=== PATIENT | male | born 1950 | race American Indian/Alaskan Native ===

== ENCOUNTER 2017-11-06 08:19 | Outpatient (CLI) | payer MEDICARE ==
[2017-11-06 08:59] LABS: Blood Urea Nitrogen 25 mg/dL (9-20)
--- NOTE | 2017-11-06 11:36 | Cat Scan Report ---
FINAL REPORT EXAM: CT ANGIO CHEST HISTORY: DILATED AORTIC ROOT TECHNIQUE: CTA of chest with IV contrast. Coronal and sagittal and MIP reconstructed images provided. PRIORS: None currently available. FINDINGS: No pneumothorax. No effusion. No consolidation. No endobronchial lesion. Main pulmonary arteries are unremarkable. No pulmonary embolus. Mild ectasia at the aortic root. Moderate aortic atherosclerotic disease. Major branch vessels are unremarkable. Aortic root measures 3.5 cm. Ascending aorta measures 3.4 cm. Horizontal aorta measures 2.3 cm. Focal protrusion at the descending aorta measures 3.1 cm. No dissection. [id number] cardiomegaly. No pericardial effusion. Coronary artery disease. There is no axillary adenopathy. There is no hilar or mediastinal mass or adenopathy. Images of the esophagus are unremarkable. Images of the thyroid gland are unremarkable. No suspicious osseous lesions on this limited examination of the skeleton. Metastatic disease better evaluated with bone scan. Degenerative changes are present in the spine. IMPRESSION: Minimal to mild ectasia of the aortic root. No aortic aneurysm or dissection. Cardiomegaly.
== END 2017-11-06 08:20 | disposition home or self-care (01) ==
LOC: CT 08:19
PROVIDERS: ATTEND Internal Medicine
DX: I51.7 Cardiomegaly (principal); I25.10 Atherosclerotic heart disease of native coronary artery without angina pectoris; I77.810 Thoracic aortic ectasia; I70.0 Atherosclerosis of aorta; M47.894 Other spondylosis, thoracic region
CPT/HCPCS: 36415; 71275; 82565; 84520; Q9967